=== PATIENT | male | born 2000 | race Caucasian/White ===

== ENCOUNTER 2021-09-20 19:58 | Emergency (ER) | payer OTHER ==
[2021-09-20 20:28] VITALS: BP 111/60; PULSE 66; BMI 25.8
== END 2021-09-20 23:47 | disposition home or self-care (01) ==
LOC: JER 19:58
DX: S89.91XA Unspecified injury of right lower leg, initial encounter (principal)
CPT/HCPCS: 99283-25

== ENCOUNTER 2023-10-08 19:03 | Emergency (ER) | payer OTHER ==
[2023-10-08 19:08] VITALS: BP 130/79; PULSE 66; RESP 20; TEMP 97.4; BMI 31.1
[2023-10-08] MEDS ORDERED: DEXAMETHASONE SOD PHOSPHATE 10 MG/1 ML VIAL ONE (23:48)
[2023-10-08] MEDS ORDERED: MAG HYDROX/AL HYDROX/SIMETH 30 ML UNIT-DOSE CUP ONE ×2 (23:49→23:56)
[2023-10-09] MEDS: DEXAMETHASONE SOD PHOSPHATE 10 MG/1 ML VIAL IM ONE (00:04)
[2023-10-09] MEDS: MAG HYDROX/AL HYDROX/SIMETH 30 ML UNIT-DOSE CUP PO ONE (00:04)
[2023-10-09] MEDS: LIDOCAINE VISCOUS 2% ORAL/TOP 15 ML UNIT-DOSE CUP MM ONE (00:04)
== END 2023-10-09 00:07 | disposition home or self-care (01) ==
LOC: JER 19:03
PROC: 3E023GC Introduction of Other Therapeutic Substance into Muscle, Percutaneous Approach (ICD-10-PCS; principal; 2023-10-08)
DX: R09.89 Other specified symptoms and signs involving the circulatory and respiratory systems (principal)
CPT/HCPCS: 70490-TC; 71250-TC; 99284-25; J1100